=== PATIENT | female | born 1985 | race Caucasian/White ===

== ENCOUNTER 2024-12-20 11:35 | Emergency (ER) | payer MEDICAID ==
[~2024-12-20] VITALS: Ht 157.5 cm; Wt 42.9 kg
[2024-12-20 11:46] VITALS: BP 144/86; PULSE 72; RESP 15; O2SAT 100
[2024-12-20] MEDS: gabapentin 400mg capsule PO ONE (13:30)
[2024-12-20] MEDS ORDERED: ESCI20TA PO (13:32)
[2024-12-20] MEDS ORDERED: GABA300C PO (13:32)
[2024-12-20 13:40] VITALS: TEMP 98.4
== END 2024-12-20 13:42 | disposition home or self-care (01) ==
LOC: ER 11:36
DX: G62.9 Polyneuropathy, unspecified (principal); Z76.0 Encounter for issue of repeat prescription; F32.A Depression, unspecified
CPT/HCPCS: 99283